=== PATIENT | male | born 1940 | race Caucasian/White ===

== ENCOUNTER 2016-09-03 10:13 | Day surgery (SDC) | payer MEDICARE, BC ==
--- NOTE | ~2016-09-03 | EGD ---
EGD REPORT [facility] [address] [address] NAME: CON EASTMAN : [birth year] STATUS : REG [facility]#: [id number] AGE: 76 ADM/REG DATE : 09/03/16 MR#: [id number] REPORT SERV DATE: 09/03/16 DICTATED BY: SHITAL HUYNH DATE: 09/03/16 REPORT STATUS : Draft TRANSCRIBED BY: [facility] DATE: 09/03/16 Endoscopy Center Patient Name: Con Eastman Date of : 1940 Attending MD: SHITAL HUYNH MD Procedure Date No Time: 09/03/2016 Procedure: Colonoscopy Indications: High risk colon cancer surveillance: Personal history of colonic polyps Referring MD: JOSIE BUI, [facility] Medicines: as per anesthesia Complications: No immediate complications. Procedure: Pre-Anesthesia Assessment: - ASA Grade Assessment: III - A patient with severe systemic disease. After I obtained informed consent, the scope was passed under direct vision. Throughout the procedure, the patient's blood pressure, pulse, and oxygen saturations were monitored continuously. The PCF [id number] was introduced through the anus and advanced to the cecum, identified by appendiceal orifice and ileocecal valve. The colonoscopy was performed without difficulty. The patient tolerated the procedure well. The quality of the bowel preparation was fair. Findings: The perianal and digital rectal examinations were normal. A sessile polyp was found in the ascending colon. The polyp was 5 mm in size. The polyp was removed with a jumbo cold forceps. Resection and retrieval were complete. A few small and large-mouthed diverticula were found in the sigmoid colon and in the descending colon. Internal hemorrhoids were found during endoscopy and were mild. Impression: - One 5 mm polyp in the ascending colon. Resected and retrieved. - Diverticulosis in the sigmoid colon and in the descending colon. - Internal hemorrhoids. Recommendation: - Await pathology results. - Repeat colonoscopy for surveillance based on pathology results. EGD REPORT [facility] [address] [place]. [address] NAME: CON EASTMAN : [birth year] STATUS : REG [facility]#: [id number] AGE: 76 ADM/REG DATE : 09/03/16 MR#: [id number] REPORT SERV DATE: 09/03/16 DICTATED BY: SHITAL HUYNH. DATE: 09/03/16 REPORT STATUS : Draft TRANSCRIBED BY: [email or web address] DATE: 09/03/16 Procedure Code(s): --- Professional --- 29911, Colonoscopy, flexible, proximal to splenic flexure; with biopsy, single or multiple Diagnosis Code(s): --- Professional --- D12.2, Benign neoplasm of ascending colon K64.8, Other hemorrhoids K57.30, Diverticulosis of large intestine without perforation or abscess without bleeding Z86.010, Personal history of colonic polyps CPT copyright 2013 [employer]. All rights reserved. The codes documented in this report are preliminary and upon hog grader review may be revised to meet current compliance requirements. SHITAL HUYNH MD 09/03/2016 12:59 PM This report has been signed electronically. Number of Addenda: 0 Note Initiated On: 09/03/2016 12:27 PM Scope Withdrawal Time 0 hours 12 minutes 3 seconds [address] [place] [address]
[~2016-09-03 10:13] MED LIST: EPOGEN10000 MG/M SC; LOP100 PO; NEUR300 PO; NORCO1 TA2 PO; NORV5 PO; PHOSLO PO; PRAV10 PO; SB325 PO; TOPXL100 PO; VELPHORO PO
[2016-09-03 10:44] LABS: BUN (BLOOD UREA NITROGEN) 38 MG/DL (6-23); CALCIUM, SERUM 8.4 MG/DL (8.5-10.4); CHLORIDE, SERUM 100 MMOL/L (96-112); CO2 (CARBON DIOXIDE) 30 MMOL/L (24-34); CREATININE 9.18 MG/DL (0.70-1.30); GFR AFRICAN AMERICAN 6 ML/MIN (>=60); GFR NON AFRICAN AMERICAN 5 ML/MIN (>=60); GLUCOSE, SERUM 60 MG/DL (60-99); POTASSIUM, SERUM 4.3 MMOL/L (3.5-5.3); SODIUM, SERUM 142 MMOL/L (135-148)
[2016-12-11] MEDS ORDERED: MEDS (16:37)
[2017-02-01] MEDS ORDERED: ARANESP25 SC (10:53)
== END 2016-09-03 23:59 | disposition home or self-care (01) ==
LOC: DMU 10:13
PROVIDERS: Anesthesiology; Internal Medicine Gastroenterology
PROC: 0DBK8ZZ Excision of Ascending Colon, Via Natural or Artificial Opening Endoscopic (ICD-10-PCS; principal; 2016-09-03 12:00)
DX: Z12.11 Encounter for screening for malignant neoplasm of colon (principal); Z86.010 Personal history of colon polyps; D12.2 Benign neoplasm of ascending colon; K57.30 Diverticulosis of large intestine without perforation or abscess without bleeding; K64.8 Other hemorrhoids; K62.89 Other specified diseases of anus and rectum; I12.0 Hypertensive chronic kidney disease with stage 5 chronic kidney disease or end stage renal disease; N18.6 End stage renal disease; E85.4 Organ-limited amyloidosis; E78.00 Pure hypercholesterolemia, unspecified; D63.1 Anemia in chronic kidney disease; F32.9 Major depressive disorder, single episode, unspecified; R32 Unspecified urinary incontinence; Z95.1 Presence of aortocoronary bypass graft; Z79.899 Other long term (current) drug therapy; Z87.891 Personal history of nicotine dependence; Z98.41 Cataract extraction status, right eye; Z98.42 Cataract extraction status, left eye; Z96.1 Presence of intraocular lens; Z97.2 Presence of dental prosthetic device (complete) (partial); Z98.890 Other specified postprocedural states; Z99.2 Dependence on renal dialysis; Z94.84 Stem cells transplant status
CPT/HCPCS: 80048; 88305